=== PATIENT | male | born 1990 | race Caucasian/White ===

== ENCOUNTER 2023-07-10 13:26 | Emergency (ER) | payer SELFPAY ==
--- NOTE | 2023-07-10 15:16 | ER ---
Nurse's Notes [facility] Name: Gabriel Regan Age: 33 yrs Sex: Male : 1990 Arrival Date: 07/10/2023 Time: 13:26 Bed DX4 Private MD: Diagnosis: Pain in left shoulder Presentation: 07/09 13:53 Chief complaint: Pt was working up in a tree cutting limbs when ladder broke, he was hb suspended by left arm before falling approx 3 feet, now c/o left shoulder pain 10. Coronavirus screen: At this time, the client does not indicate any symptoms associated with coronavirus-19. Ebola Screen: No symptoms or risks identified at this time. Initial Sepsis Screen: Does the patient meet any 2 criteria? No. Patient's initial sepsis screen is negative. Does the patient have a suspected source of infection? No. Patient's initial sepsis screen is negative. Risk Assessment: Do you want to hurt yourself or someone else? Patient reports no desire to harm self or others. Onset of symptoms was July 07, 2023. 13:53 Method Of Arrival: Ambulatory 13:53 Acuity: JULES 4 hb 15:24 Care prior to arrival: None. Mechanism of Injury: Fall. Trauma event details: Injury ll1 occurred in the [facility]. Triage Assessment: 13:56 General: Appears in no apparent distress. uncomfortable, Behavior is calm, cooperative. hb Pain: Pain currently is 6 out of 10 on a pain scale. Neuro: Level of Consciousness is awake, alert, obeys commands, Oriented to person, place, time, situation. Cardiovascular: Capillary refill. Respiratory: Respiratory effort is even, unlabored, Respiratory pattern is regular, symmetrical. Trauma Activation: Not Applicable Physician: ED Physician; Name: ; Notified At: ; Arrived At: Physician: General Surgeon; Name: ; Notified At: ; Arrived At: Physician: Radiology; Name: ; Notified At: ; Arrived At: Physician: Respiratory; Name: ; Notified At: ; Arrived At: Physician: Lab; Name: ; Notified At: ; Arrived At: Historical: - Allergies: 13:55 No Known Allergies; hb - Home Meds: 13:55 unknown stattin [Active]; hb - PMHx: 13:55 High Cholesterol; hb - PSHx: 13:55 Carpal Tunnel - Bilat; hb - Immunization history:: Adult Immunizations up to date. - Infectious Disease History:: Denies. - Immunization history: Last tetanus immunization: - up to date. - Social history:: Smoking status: Reported history of juuling and/or vaping. Screenin:23 [facility] ED Fall Risk Assessment (Adult) History of falling in the last 3 months, ll1 including since admission No falls in past 3 months (0 pts) Confusion or Disorientation No (0 pts) Intoxicated or Sedated No (0 pts) Impaired Gait No (0 pts) Mobility Assist Device Used No (0 pt) Altered Elimination No (0 pt) Score/Fall Risk Level 0 - 2 = Low Risk Maintained a safe environment, Hourly rounding (assess needs \T\ fall precautionary measures) done. Abuse screen: Denies threats or abuse. Nutritional screening: No deficits noted. Tuberculosis screening: No symptoms or risk factors identified. Primary Survey: 15:23 NO uncontrolled hemorrhage observed. A: The client is awake and alert. The airway is ll1 patent. Breathing/Chest: Spontaneous respiratory effort, equal unlabored respirations, breath sounds clear bilaterally, regular pattern, symmetrical chest rise and fall. Circulation: No external hemorrhage present. Regular and strong central pulse, skin warm/dry/normal color. Disability Client is alert. Exposure/Environment: There is no evidence of uncontrolled external bleeding. 15:24 Reassessment Alertness and Airway: Awake and alert. The airway is patent. Breathing: ll1 Spontaneous respiratory effort, equal unlabored respirations, breath sounds clear bilaterally, regular pattern with symmetrical chest rise and fall. Circulation: No external hemorrhage noted. Regular and strong central pulse, skin warm/dry/normal color. Disability: Alert. Assessment: 15:22 Reassessment: No changes from previously documented assessment. Patient and/or family ll1 updated on plan of care and expected duration. Pain level reassessed. Patient is alert, oriented x 3, equal unlabored respirations, skin warm/dry/pink. General: Appears uncomfortable, Behavior is calm, cooperative, appropriate for age. Pain: Complains of pain in L shoulder Quality of pain is described as aching. Musculoskeletal: Circulation, motion, and sensation intact. Capillary refill < 3 seconds, Reports pain in L shoulder. Vital Signs: 13:53 BP 172 / 98; Pulse 74; Resp 16; Temp 97.6(TE); Pulse Ox 100% on R/A; Weight 95.25 kg; hb Height 5 ft. 9 in. ; Pain 6/10; 15:22 BP 126 / 70; Pulse 69; Resp 16; Pulse Ox 100% ; ll1 13:53 Body Mass Index 31.01 (95.25 kg, 175.26 cm) hb 13:53 Pain Scale: Adult hb Friendly Coma Score: 15:23 Eye Response: spontaneous(4). Motor Response: obeys commands(6). Verbal Response: ll1 oriented(5). Total: 15. Trauma Score (Adult): 15:23 Eye Response: spontaneous(1); Verbal Response: oriented(1); Motor Response: obeys ll1 commands(2); Systolic BP: > 89 mm Hg(4); Respiratory Rate: 10 to 29 per min(4); Shonda Score: 15; Trauma Score: 12 ED Course: 13:29 Patient arrived in ED. ra3 13:36 Navi Miller PA is PHCP. cp 13:36 Navi Arreguin MD is Attending Physician. cp 13:55 Triage completed. hb 13:56 Arm band placed on. hb 15:08 XRAY Shoulder LEFT 2 view In Process Unspecified. EDMS 15:15 Raimundo Hinojosa MD is Referral Physician. cp 15:24 Patient has correct armband on for positive identification. Provided Education on: do ll1 not drink alcohol or drive on prescribed medications. 15:24 No provider procedures requiring assistance completed. Patient did not have IV access ll1 during this emergency room visit. 15:25 O2 via room air. ll1 15:25 Thermoregulation: n/a. ll1 Administered Medications: No medications were administered Medication: 15:25 VIS not applicable for this client. ll1 Intake: 15:23 PO: 0ml; Total: 0ml. ll1 Output: 15:23 Urine: 0ml; Total: 0ml. ll1 Outcome: 15:16 Discharge ordered by . cp 15:24 Discharged to home ambulatory, ll1 15:24 Condition: stable 15:24 Discharge instructions given to patient, family, Instructed on discharge instructions, follow up and referral plans. no drinking with medication, no driving heavy equipment, medication usage, Demonstrated understanding of instructions, follow-up care, medications, Prescriptions given X 2, 15:25 Patient's length of stay was not longer than 2 hours. ll1 15:25 Patient left the ED. ll1 Signatures: Dispatcher [employer] EDMS Navi Miller PA PA cp Baxter, Heather RN RN Katie Gill RN RN ll1 Roxanne Reeder ra3 Corrections: (The following items were deleted from the chart) 13:56 13:55 Social history: Smoking status: Patient denies any tobacco usage or history of. hbhb
--- NOTE | 2023-07-10 15:17 | EDPHYS ---
Physician Documentation [facility] Name: Gabriel Regan Age: 33 yrs Sex: Male : 1990 Arrival Date: 07/10/2023 Time: 13:26 Bed DX4 Private MD: ED Physician Navi Arreguin HPI: 07/09 15:00 This 33 yrs old Male presents to ER via Ambulatory with complaints of Fall Injury, cp Shoulder Pain. 15:00 The patient or guardian complains of an injury, pain, that is acute. left shoulder. cp Context: resulted from fall from ladder. 15:00 Onset: The symptoms/episode began/occurred days ago. cp 15:00 Associated signs and symptoms: The patient has no apparent associated signs or symptoms.cp Historical: - Allergies: 13:55 No Known Allergies; hb - Home Meds: 13:55 unknown stattin [Active]; hb - PMHx: 13:55 High Cholesterol; hb - PSHx: 13:55 Carpal Tunnel - Bilat; hb - Immunization history:: Adult Immunizations up to date. - Infectious Disease History:: Denies. - Immunization history: Last tetanus immunization: - up to date. - Social history:: Smoking status: Reported history of juuling and/or vaping. ROS: 15:05 MS/extremity: Positive for pain, tenderness, of the left shoulder, Negative for cp decreased range of motion, deformity, paresthesias, 15:05 Respiratory: Negative for cough, shortness of breath, wheezing, cp 15:05 Constitutional: Negative for body aches, chills, fever, cp 15:05 Neck: Negative for pain with movement, pain at rest, stiffness, 15:05 Cardiovascular: Negative for chest pain, edema, palpitations, 15:05 Back: Negative for pain at rest, pain with movement, radiated pain, 15:05 Neuro: Negative for dizziness, headache, numbness, syncope, near syncope, weakness, 15:05 All other systems are negative, Exam: 15:10 Constitutional: The patient appears in no acute distress, alert, awake, cp non-diaphoretic, well developed, well nourished, 15:10 Head/Face: Normocephalic, atraumatic. cp 15:10 Eyes: Periorbital structures: appear normal, Conjunctiva: normal, no exudate, no injection, Sclera: no appreciated abnormality, Lids and lashes: appear normal, bilaterally, 15:10 ENT: External ear(s): are unremarkable, Nose: is normal, Mouth: Lips: moist, Oral cp mucosa: moist, Posterior pharynx: Airway: no evidence of obstruction, patent, 15:10 Neck: C-spine: vertebral tenderness, is not appreciated, crepitus, is not appreciated, ROM/movement: is normal, is supple, without pain, no range of motions limitations, 15:10 Chest/axilla: Inspection: normal, Palpation: is normal, no crepitus, no tenderness, 15:10 Cardiovascular: Rate: normal, Rhythm: regular, Pulses: Pulses are 2+ in left radial artery. 15:10 Respiratory: the patient does not display signs of respiratory distress, Respirations: normal, no use of accessory muscles, no retractions, labored breathing, is not present, Breath sounds: are clear throughout, no decreased breath sounds, no stridor, no wheezing, 15:10 Abdomen/GI: Exam negative for discomfort, distension, guarding, Inspection: abdomen appears normal, 15:10 Back: pain, is absent, ROM is normal, 15:10 Musculoskeletal/extremity: Extremities: grossly normal except: noted in the left shoulder: pain, tenderness, There is no evidence of decreased ROM, deformity, ROM: limited active range of motion due to pain, in the left shoulder, 15:10 Neuro: Orientation: to person, place \T\ time. Mentation: is normal, cp Vital Signs: 13:53 BP 172 / 98; Pulse 74; Resp 16; Temp 97.6(TE); Pulse Ox 100% on R/A; Weight 95.25 kg; hb Height 5 ft. 9 in. ; Pain 6/10; 15:22 BP 126 / 70; Pulse 69; Resp 16; Pulse Ox 100% ; ll1 13:53 Body Mass Index 31.01 (95.25 kg, 175.26 cm) hb 13:53 Pain Scale: Adult hb Shonda Coma Score: 15:23 Eye Response: spontaneous(4). Motor Response: obeys commands(6). Verbal Response: ll1 oriented(5). Total: 15. Trauma Score (Adult): 15:23 Eye Response: spontaneous(1); Verbal Response: oriented(1); Motor Response: obeys ll1 commands(2); Systolic BP: > 89 mm Hg(4); Respiratory Rate: 10 to 29 per min(4); Shonda Score: 15; Trauma Score: 12 MDM: 14:02 Patient medically screened. cp 15:15 Data reviewed: vital signs, nurses notes, radiologic studies, plain films, and as a cp result, I will discharge patient. 15:15 Differential diagnosis: Anterior dislocation with fracture, Anterior dislocation cp without fracture, Posterior dislocation with fracture, Posterior dislocation without fracture, tendonitis. Counseling: I had a detailed discussion with the patient and/or guardian regarding the historical points, exam findings, and any diagnostic results supporting the discharge/admit diagnosis, radiology results, the need for outpatient follow up, a family practitioner, a orthopedic surgeon, to return to the emergency department if symptoms worsen or persist or if there are any questions or concerns that arise at home. Response to treatment: the patient's symptoms have mildly improved after treatment, and as a result, I will discharge patient. 07/09 14:18 Order name: XRAY Shoulder LEFT 2 view; Complete Time: 15:24 cp 07/09 15:24 Interpretation: Report reviewed. cp Administered Medications: No medications were administered Disposition Summary: 07/10/23 15:16 Discharge Ordered Notes: Location: Home cp Problem: new cp Symptoms: have improved cp Condition: Stable cp Diagnosis - Pain in left shoulder cp Followup: cp - With: Raimundo Hinojosa MD - When: 2 - 3 days - Reason: Worsening of condition Discharge Instructions: - Discharge Summary Sheet cp - Shoulder Pain cp - Shoulder Range of Motion Exercises cp Forms: - Medication Reconciliation Form cp - Antibiotic Education cp - Prescription Opioid Use cp - Patient Portal Instructions cp - Leadership Thank You Letter cp Prescriptions: - Cyclobenzaprine 10 mg Oral Tablet - take 1 tablet ORAL route every 8 hours As needed; 30 tablet; Refills: 0, cp Product Selection Permitted - Diclofenac Sodium 75 mg Oral Tablet Sustained Release - take 1 tablet ORAL route 2 times per day; 30 tablet; Refills: 0, Product cp Selection Permitted Signatures: Dispatcher [employer] EDMS Navi Miller PA PA cp Baxter, Heather, RN RN Katie Gallardo RN RN ll1 Corrections: (The following items were deleted from the chart) 13:56 13:55 Social history: Smoking status: Patient denies any tobacco usage or history of. hbhb
--- NOTE | 2023-07-10 15:21 | RAD REPORT ---
EXAM DESCRIPTION: RAD - Shoulder Left 2 View - 07/10/2023 3:06 pm CLINICAL HISTORY: PAIN COMPARISON: <Comparisons> FINDINGS/IMPRESSION: No acute fracture. No malalignment. No significant focal degenerative changes.
[2023-07-10 15:44] VITALS: BP 126/70; TEMP 97.6; O2SAT 100
== END 2023-07-10 15:25 | disposition home or self-care (01) ==
LOC: ER 13:26
DX: M25.512 Pain in left shoulder (principal)
CPT/HCPCS: 99284